=== PATIENT | male | born 1945 | race Caucasian/White ===

== ENCOUNTER 2020-10-26 09:50 | Emergency (ER) | payer MEDICARE, SELFPAY ==
[2020-10-26 10:02] VITALS: BP 128/75; PULSE 65; RESP 14; TEMP 36.9; O2SAT 98; BMI 25.8
--- NOTE | 2020-10-26 10:07 | DI.RAD.S_ITS ---
PROCEDURE: XR ANKLE RT MIN 3V INDICATIONS: ankle pain TECHNIQUE: 3 views of the ankle were acquired. COMPARISON: None. FINDINGS: Bones: No fractures or dislocations. Ankle mortise is normally aligned. No suspicious bony lesions. Soft tissues: No tibiotalar joint effusion. Achilles tendon appears normal. IMPRESSION: No evidence acute bony abnormality of the right ankle. If clinical suspicion and/or symptoms persist, further assessment with repeat plain films, or advanced imaging (e.g., CT, MRI, or bone scan) may be helpful for further assessment. Dictated by: Bernard Villa M.D. on 10/26/2020 at 10:36 Approved by: Bernard Villa M.D. on 10/26/2020 at 10:39
--- NOTE | 2020-10-26 11:06 | ED_ITS ---
HPI - Extremity Injury (Lower) General Chief Complaint: Extremity Injury, Lower Stated Complaint: right ankle pain since yesterday Time Seen by Provider: 10/26/20 10:08 Source: patient Mode of arrival: Ambulatory Limitations: no limitations History of Present Illness HPI Narrative: Patient is a 75-year-old male here for evaluation of right ankle discomfort. He stated that the symptoms started yesterday. He reports no specific trauma but does have pain on the inside of his right ankle. Has not tried anything for symptoms prior to arrival. Related Data Allergies Allergy/AdvReac Type Severity Reaction Status Date / Time No Known Drug Allergies Allergy Verified 10/26/20 10:09 Review of Systems Musculoskeletal Musculoskeletal: Denies tingling Comments: Right ankle pain Integumentary/Breasts Comments: Slight discoloration on the inside of right ankle Neurologic Neurologic: Denies tingling Hematologic/Lymphatic On Anticoagulants: No Patient History Medical History Healthy adult Social History Smoking Status: Unknown if ever smoked Smoking Status: Unknown if ever smoked alcohol intake frequency: 0-2 drinks per day Substance Use Type: does not use Exam Initial Vital Signs Initial Vital Signs: Vital Signs Temperature 98.5 F 10/26/20 10:02 Pulse Rate 65 10/26/20 10:02 Respiratory Rate 14 10/26/20 10:02 Blood Pressure 128/75 10/26/20 10:02 Pulse Oximetry 98 10/26/20 10:02 Const General: cooperative and comfortable Limitations: mental status not altered [place] Head: normal to inspection and normocephalic Cardio Pulses: dorsalis pedis present on the right Skin Other: Patient does have slight discoloration both inferior and posterior the right medial malleolus. There is also a similar discoloration on the left side so unsure this is a new finding or not. Otherwise no other skin changes. Neuro Sensory Exam: no sensory deficits noted Extrem Other: No proximal fibula tenderness. No lateral malleolus tenderness. His ankle exam is unremarkable except for tenderness inferior to the medial malleolus. Psych Appearance: grossly normal and well kempt Course Orders Ordered: ED Orders 10/26/20 10:07 XR ankle RT min 3V Stat Vital Signs Vital signs: Vital Signs - 8 hr 10/26/20 11:56 Pulse Rate 61 Respiratory Rate 18 Blood Pressure 128/68 Pulse Oximetry 96 [facility] - Extremity Injury (Lower) Imaging Data Extremity x-ray #1: Radiologist's Impression: [address] [id number] ReportSigned Patient: Donato TomlinsonMR#: [id number]: [id number]:[id number]/Sex: 75 / MDate of Service: 10/26/20Loc: EDAccession Number: [id number] Procedure: XR ankle RT min 3V Ordering Provider: Miguel Angel Funez D.O. PROCEDURE: XR ANKLE RT MIN 3V INDICATIONS: ankle pain TECHNIQUE: 3 views of the ankle were acquired. COMPARISON: None. FINDINGS: Bones: No fractures or dislocations. Ankle mortise is normally aligned. No suspicious bony lesions. Soft tissues: No tibiotalar joint effusion. Achilles tendon appears normal. IMPRESSION: No evidence acute bony abnormality of the right ankle. If clinical suspicion and/or symptoms persist, further assessment with repeat plain films, or advanced imaging (e.g., CT, MRI, or bone scan) may be helpful for further assessment. Dictated by: Bernard Villa M.D. on 10/26/2020 at 10:36 Approved by: Bernard Villa M.D. on 10/26/2020 at 10:39 [facility] Narrative Medical decision making narrative: He is neurovascularly intact. Has been ambulatory. No fractures noted on the x-rays. We did discuss using a ankle brace as needed. There is no indication for any crutches. We can hold on further workup for now. He is given return precautions and follow-up instructions. He expressed understanding and agreement. Discharge Plan Departure Patient Disposition: Home Clinical Impression: Right ankle sprain Instructions: DI for Ankle Sprain Activity Restrictions/Additional Instructions: There were no fractures noted on the x-rays. He can purchase a ankle brace and wear it as needed for your discomfort. You are only limited in your activity by your discomfort. Return to the emergency department for any new or worsening symptoms.
[2020-10-26 11:56] VITALS: BP 128/68; PULSE 61; RESP 18; O2SAT 96
== END 2020-10-26 11:58 | disposition home or self-care (01) ==
PROVIDERS: Emergency Provider Emergency Medicine
DX: S93.401A Sprain of unspecified ligament of right ankle, initial encounter (principal)
CPT/HCPCS: 73610; 99283